=== PATIENT | female | born 1945 | race Caucasian/White ===

== ENCOUNTER → 2016-10-15 18:18 | Outpatient (CLI) | payer MEDICARE ==
[2014-03-13 11:29] VITALS: BMI 31.3
[~2016-10-15 18:18] MED LIST: ACETAMINOPHEN325 MG PO; CHOLESTYRAMIN4 G/PK1 PO; COLACE100 MG PO; ELIQUIS2.5 MG PO; FLAGYL500 MG PO; HYDROCODON-ACE1 EAC7 PO; LEVAQUIN500 MG PO; LEVSIN/ANASP0.125 MG PO; LOPRESSOR25 MG PO; MULTIPLE VITAMI1 TA1 PO; NORVASC5 MG PO; PRILOSEC20 MG PO; PRINIVIL10 MG PO; QUESTRAN PACK4 G/PKT PO
== END | disposition home or self-care (01) ==
LOC: D.MAMMO 11:15
DX: Z12.31 Encounter for screening mammogram for malignant neoplasm of breast (principal)

== ENCOUNTER → 2017-03-12 17:28 | Outpatient (CLI) | payer MEDICARE ==
[2014-03-13 11:29] VITALS: BMI 31.3
== END | disposition home or self-care (01) ==
LOC: D.LABREF 17:28
DX: N39.0 Urinary tract infection, site not specified (principal)

== ENCOUNTER → 2017-03-27 19:55 | Outpatient (CLI) | payer MEDICARE ==
[2014-03-13 11:29] VITALS: BMI 31.3
== END | disposition home or self-care (01) ==
LOC: D.LABREF 19:55
DX: N39.0 Urinary tract infection, site not specified (principal)

== ENCOUNTER → 2017-04-03 16:09 | Outpatient (CLI) | payer MEDICARE ==
[2014-03-13 11:29] VITALS: BMI 31.3
== END | disposition home or self-care (01) ==
LOC: D.LABREF 16:09
DX: N39.0 Urinary tract infection, site not specified (principal)

== ENCOUNTER → 2017-04-10 16:35 | Outpatient (CLI) | payer MEDICARE ==
[2014-03-13 11:29] VITALS: BMI 31.3
== END | disposition home or self-care (01) ==
LOC: D.LABREF 16:35
DX: N39.0 Urinary tract infection, site not specified (principal)

== ENCOUNTER 2017-04-18 14:13 | Day surgery (SDC) | payer MEDICARE ==
[~2017-04-18] VITALS: Ht 403.9 cm; Wt 104.3 kg
--- NOTE | ~2017-04-18 | OP ---
PATIENT NAME: FUAD WILDER MEDICAL RECORD: [id number] :49 LOCATION:D.OPS ADMISSION DATE: SURGEON: JITENDRA WASSERMAN MD DATE OF OPERATION: 04/18/2017 SURGEON: Jitendra Wasserman MD ANESTHESIA: MAC by Herman Huynh CRNA. PREOPERATIVE DIAGNOSIS: Interstitial cystitis. PROCEDURES: Cystoscopy and intravesical Rimso injection. FINDINGS: Single ureteral orifices bilaterally. No bladder tumors. Diffuse bladder inflammation. BLOOD LOSS: None. CLINICAL HISTORY: This is a 72-year-old female with a longstanding history of urinary tract infection symptoms. However, her latest urine cultures have shown no growth. She has suprapubic tenderness as well as vulvar pain and urinary frequency and urgency. She comes now to have cystoscopy to check for bladder inflammation and if inflammation is found, we will be giving her intravesical Rimso. She was covered with perioperative antibiotics. DESCRIPTION OF PROCEDURE: The patient was given IV sedation. She was placed in the dorsal lithotomy position and prepped and draped. A 17-Yakut cystoscope was used for visualization. Diffuse bladder inflammation was seen. No bladder tumors were seen. The bladder was emptied through the cystoscope. A 16-Yakut red rubber catheter was then inserted into the bladder. Through the catheter, 50 mL of Rimso solution was injected into the bladder. The catheter was then withdrawn, leaving the solution in the bladder. The patient will hold the solution for at least 15 minutes and then void it out. She will come in followup next week to have the second treatment done. TRANSINT:[id number] Voice Confirmation ID: [id number] DOCUMENT ID: [id number] JITENDRA WASSERMAN MD at 1338 CC: [id number] DICTATION DATE: 04/18/17 1030 COUNTER DISH CARRIER: 04/18/17 1140 [facility] [address] [place] [address]
[2017-04-18 08:19] VITALS: BP 152/75; Ht 403.9 cm; Wt 104.3 kg
[2017-04-18 08:24] LABS: HEMATOCRIT 40.5 % (36.0-48.0); HEMOGLOBIN 13.9 g/dL (12-16); MCH 29.6 pg (26.0-34.0); MCHC 34.3 g/dL (31.0-37.0); MCV 86.2 fL (80.0-100.0); MEAN PLATELET VOLUME 11.5 fL (7.4-10.4); RBC 4.7 10x6/uL (4.00-5.40); RDW 12.1 % (11.5-14.5); WBC 6.3 10x3/uL (4.8-10.8)
[~2017-04-18 14:13] MED LIST changes: +CARDURA XL4 MG/BOTTL PO; +METOPROLOL TART50 MG PO
== END 2017-04-18 14:31 | disposition home or self-care (01) ==
LOC: D.OPS 14:13
PROVIDERS: Anesthesiology
DX: N30.10 Interstitial cystitis (chronic) without hematuria (principal); I10 Essential (primary) hypertension; K21.9 Gastro-esophageal reflux disease without esophagitis; Z01.812 Encounter for preprocedural laboratory examination

== ENCOUNTER → 2017-04-26 18:49 | Outpatient (CLI) | payer MEDICARE | END | disposition home or self-care (01) | LOC: D.LABREF 18:49 | DX: N39.0 Urinary tract infection, site not specified (principal) ==

== ENCOUNTER → 2017-05-01 17:12 | Outpatient (CLI) | payer MEDICARE ==
[2017-05-05 17:07] LABS: AEROBE ID Final report (())
== END | disposition home or self-care (01) ==
LOC: D.LABREF 17:12
PROVIDERS: Urology
DX: N39.0 Urinary tract infection, site not specified (principal)

== ENCOUNTER → 2017-05-29 17:43 | Outpatient (CLI) | payer MEDICARE | END | disposition home or self-care (01) | LOC: D.LABREF 17:43 | DX: N39.0 Urinary tract infection, site not specified (principal) ==

== ENCOUNTER → 2017-07-02 18:12 | Outpatient (CLI) | payer MEDICARE | END | disposition home or self-care (01) | LOC: D.LABREF 18:12 | DX: N39.0 Urinary tract infection, site not specified (principal) ==

== ENCOUNTER → 2017-07-22 17:22 | Outpatient (CLI) | payer MEDICARE | END | disposition home or self-care (01) | LOC: D.LABREF 17:22 | DX: R31.9 Hematuria, unspecified (principal) ==

== ENCOUNTER → 2017-08-06 20:37 | Outpatient (CLI) | payer MEDICARE | END | disposition home or self-care (01) | LOC: D.LABREF 20:37 | DX: N39.0 Urinary tract infection, site not specified (principal) ==